=== PATIENT | female | born 1940 | race Caucasian/White ===

== ENCOUNTER 2016-04-18 17:49 | Emergency (ER) | payer MEDICARE, BC ==
[~2016-04-18] VITALS: Ht 157.5 cm; Wt 54.5 kg
[~2016-04-18 17:49] MED LIST: ACETAMINOPHEN325 MG PO; ALLEGRA60 MG PO; ALORA0.025 MG/2 TD; ANTIVERT 25MG25 MG PO; ASPI325T6 PO; ASPIRIN 32325 MG/TAB PO; ASPIRIN 81M81 MG/TA2 PO; AUGMENTIN 875 M1 TAB PO; BENADRYL25 M2 PO; BIRTH CONTROL; CALCIUM CITRAT200 MG PO; CECLOR 250MG250 MG PO; CEFACLOR250 MG PO; CEFTIN500 MG PO; CIPRO 500MG TA500 MG PO; EFFIENT10 MG PO; ESTRACE0.5 MG PO; FISH OIL500 MG PO; FLEXERIL 1010 MG/TAB PO; FLEXERIL5 MG PO; IRON325 M1 PO; LEVAQUIN 5500 MG/TAB PO; LINZESS290CAP PO; LIORESAL 1010 MG/TAB PO; LIPITOR 40MG TA40 MG PO; MACROBID 1100 MG/CAP PO; NEXIUM40 MG PO; NITROSTAT0.4 MG/TAB SL; NORCO 325 MG-51 TAB PO; OMNICEF 300MG300 MG PO; PEPCID 20MG TAB20 MG PO; PHENERGAN 25 TA25 MG; PHENERGAN 25 TA25 MG PO; PHENERGAN12.5 MG/SU RC; PHENERGAN25 MG RC; PLAVIX 75MG TAB75 MG PO; Patient's Own Medication PO; SINGULAIR10 MG PO; TOPROL XL 25MG25 MG PO; TOPROL XL 50MG50 MG PO; TYLENOL 500MG500 MG PO; ULTRAM ER100 MG PO; VALIUM 2MG T2 MG/TAB PO; VALIUM 5MG T5 MG/TAB PO; VIT C; VITAMIN B12100 MC1 PO; VITAMIN B1250 MCG PO; VITAMIN C500 MG PO; ZANTAC 7575 MG PO; ZESTRIL 5MG5 MG PO; ZITHROMAX 250M250 MG PO; ZOFRAN 4MG T4 MG/TAB PO; ZOFRAN ODT4 MG PO; ZOFRAN ODT8 MG PO; ZYRTEC PO; [UNRECOGNIZED DRUG - REMARK]
[2016-04-18 17:58] VITALS: TEMP 98.4
[2016-04-18 18:49] LABS: BASO % 0.4 % (0.0-2.0); EOS # 0.2 (0.0-0.7); EOS % 4.6 % (0-4.0); GRAN # 3.1 (1.4-6.5); GRAN % 61.2 % (42.2-75.2); HEMATOCRIT 37.5 % (37.0-47.0); HEMOGLOBIN 12.7 g/dl (12.5-16.0); LYMPH # 1.3 (1.2-3.4); MEAN CELL VOLUME 98 fl (80.0-100.0); MEAN CORPUSCULAR HEMOGLOBIN 33 pg (27.0-31.0); MEAN CORPUSCULAR HGB CONC 34 g/dl (33.0-37.0); MEAN PLATELET VOLUME 9.8 fl (7.4-10.4); MONO # 0.4 (0.1-0.6); MONO % 7.6 % (1.7-9.3); PLATELET COUNT 203 K/mm3 (130-400); RED BLOOD COUNT 3.84 M/mm3 (4.10-5.30); REDCELL DISTRIBUTION WIDTH-CV 11.9 % (11.5-14.5)
[2016-04-18 19:00] LABS: ADJUSTED CALCIUM 9.7 mg/dL (8.4-10.2); ALANINE AMINOTRANSFERASE 31 U/L (9-52); ALBUMIN 4.3 gm/dL (3.5-5.0); ALKALINE PHOSPHATASE 135 U/L (50-136); ANION GAP 10 mmol/L (7-16); BILIRUBIN,TOTAL 0.8 mg/dL (0.0-1.0); BLOOD UREA NITROGEN 15 mg/dL (7-17); C-REACTIVE PROTEIN 1.2 mg/dL (0.0-0.9); CALCIUM 9.9 mg/dL (8.4-10.2); CARBON DIOXIDE 24 mmol/L (22-30); CHLORIDE 102 mmol/L (98-107); CREATININE, serum 1.01 mg/dL (0.52-1.25); GLUCOSE 105 mg/dL (74-106); POTASSIUM 4.4 mmol/L (3.4-5.0); SODIUM 137 mmol/L (137-145); TOTAL PROTEIN 7.6 gm/dL (6.4-8.2)
[2016-04-18 19:10] LABS: TROPONIN-I < 0.012 ng/mL (0.000-0.034)
[2016-04-18] MEDS ORDERED: ZOFRAN 4MG T4 MG/TAB PO (20:32)
[2016-04-18] MEDS ORDERED: ATIVAN 0.50.5 MG/TAB PO (20:32)
[2016-04-18 21:20] VITALS: BP 136/72; PULSE 69
== END 2016-04-18 21:20 | disposition home or self-care (01) ==
LOC: COL.ER 17:49
PROVIDERS: Emergency Medicine
DX: R42 Dizziness and giddiness (principal); I10 Essential (primary) hypertension; I25.10 Atherosclerotic heart disease of native coronary artery without angina pectoris
CPT/HCPCS: J2060; J2405; J7030

== ENCOUNTER 2016-09-06 22:11 | Emergency (ER) | payer MEDICARE, BC ==
[~2016-09-06] VITALS: Ht 157.5 cm; Wt 53.6 kg
[~2016-09-06 22:11] MED LIST changes: +ATIVAN 0.50.5 MG/TAB PO
[2016-09-06 22:24] VITALS: TEMP 98
[2016-09-06] MEDS ORDERED: VITAMIN D 1001000 IU PO (22:27)
[2016-09-06 23:13] LABS: BASO % 0.5 % (0.0-2.0); EOS # 0.3 (0.0-0.7); EOS % 4.6 % (0-4.0); GRAN # 3.1 (1.4-6.5); GRAN % 55.1 % (42.2-75.2); HEMATOCRIT 36.6 % (37.0-47.0); HEMOGLOBIN 12.4 g/dl (12.5-16.0); LYMPH # 1.7 (1.2-3.4); LYMPH % 30.1 % (20.0-51.0); MEAN CELL VOLUME 97 fl (80.0-100.0); MEAN CORPUSCULAR HEMOGLOBIN 33 pg (27.0-31.0); MEAN CORPUSCULAR HGB CONC 34 g/dl (33.0-37.0); MEAN PLATELET VOLUME 10.2 fl (7.4-10.4); MONO # 0.5 (0.1-0.6); MONO % 8.8 % (1.7-9.3); PLATELET COUNT 174 K/mm3 (130-400); RED BLOOD COUNT 3.76 M/mm3 (4.10-5.30); REDCELL DISTRIBUTION WIDTH-CV 11.8 % (11.5-14.5); WHITE BLOOD COUNT 5.7 K/mm3 (4.8-10.8)
[2016-09-06 23:18] LABS: ALANINE AMINOTRANSFERASE 23 U/L (9-52); ALBUMIN 4.1 gm/dL (3.5-5.0); ALKALINE PHOSPHATASE 101 U/L (50-136); ANION GAP 10 mmol/L (7-16); BLOOD UREA NITROGEN 16 mg/dL (7-17); CALCIUM 9.1 mg/dL (8.4-10.2); CARBON DIOXIDE 24 mmol/L (22-30); CHLORIDE 103 mmol/L (98-107); CREATININE, serum 0.91 mg/dL (0.52-1.25); GLUCOSE 86 mg/dL (74-106); POTASSIUM 4.1 mmol/L (3.4-5.0); SODIUM 137 mmol/L (137-145); TOTAL PROTEIN 6.9 gm/dL (6.4-8.2)
[2016-09-06 23:31] LABS: PH 6 (5-8); SQUAMOUS EPITHELIAL 0-2 /hpf; URINE APPEARANCE Clear; URINE BACTERIA None Seen /hpf; URINE BILIRUBIN Negative (NEGATIVE); URINE BLOOD Negative (NEGATIVE); URINE COLOR Straw; URINE GLUCOSE Negative (NEGATIVE); URINE KETONE Negative (NEGATIVE); URINE RBC 0-2 /hpf; URINE UROBILINOGEN Negative (NEGATIVE); URINE WBC 0-2 /hpf
[2016-09-06] MEDS ORDERED: DYNACIRC PO (23:43)
[2016-09-06] MEDS ORDERED: ZOFRAN 4MG T4 MG/TAB PO (23:43)
[2016-09-06 23:52] LABS: TROPONIN-I < 0.012 ng/mL (0.000-0.034)
[2016-09-07 00:35] VITALS: BP 135/73; PULSE 62
== END 2016-09-07 00:35 | disposition home or self-care (01) ==
LOC: COL.ER 22:11
PROVIDERS: Emergency Medicine
DX: I10 Essential (primary) hypertension (principal); R11.0 Nausea; R10.13 Epigastric pain; R51 Headache; R07.9 Chest pain, unspecified; I25.10 Atherosclerotic heart disease of native coronary artery without angina pectoris; Z95.5 Presence of coronary angioplasty implant and graft; Z79.02 Long term (current) use of antithrombotics/antiplatelets

== ENCOUNTER 2016-11-26 19:02 | Emergency (ER) | payer MEDICARE, BC ==
[~2016-11-26] VITALS: Ht 157.5 cm; Wt 52.7 kg
[~2016-11-26 19:02] MED LIST changes: +DYNACIRC PO; +VITAMIN D 1001000 IU PO
[2016-11-26 19:07] VITALS: TEMP 98
[2016-11-26] MEDS ORDERED: CEFACLOR250 MG PO (19:29)
[2016-11-26 19:50] LABS: BASO % 0.3 % (0.0-2.0); EOS # 0.2 (0.0-0.7); EOS % 4.2 % (0-4.0); GRAN # 3.5 (1.4-6.5); GRAN % 60.7 % (42.2-75.2); HEMOGLOBIN 12.3 g/dl (12.5-16.0); LYMPH # 1.5 (1.2-3.4); LYMPH % 26.8 % (20.0-51.0); MEAN CELL VOLUME 96 fl (80.0-100.0); MEAN CORPUSCULAR HEMOGLOBIN 32 pg (27.0-31.0); MEAN CORPUSCULAR HGB CONC 34 g/dl (33.0-37.0); MEAN PLATELET VOLUME 10.3 fl (7.4-10.4); MONO # 0.5 (0.1-0.6); MONO % 7.8 % (1.7-9.3); PLATELET COUNT 192 K/mm3 (130-400); RED BLOOD COUNT 3.81 M/mm3 (4.10-5.30); WHITE BLOOD COUNT 5.7 K/mm3 (4.8-10.8)
[2016-11-26 19:53] LABS: HEMATOCRIT 36.6 % (37.0-47.0)
[2016-11-26 20:10] LABS: ADJUSTED CALCIUM 8.7 mg/dL (8.4-10.2); ALANINE AMINOTRANSFERASE 24 U/L (9-52); ALBUMIN 4.5 gm/dL (3.5-5.0); ALKALINE PHOSPHATASE 113 U/L (50-136); ANION GAP 11 mmol/L (7-16); BLOOD UREA NITROGEN 14 mg/dL (7-17); C-REACTIVE PROTEIN 0.7 mg/dL (0.0-0.9); CALCIUM 9.1 mg/dL (8.4-10.2); CARBON DIOXIDE 21 mmol/L (22-30); CHLORIDE 99 mmol/L (98-107); CREATININE, serum 0.87 mg/dL (0.52-1.25); GLUCOSE 107 mg/dL (74-106); SODIUM 131 mmol/L (137-145); TOTAL PROTEIN 7.6 gm/dL (6.4-8.2)
[2016-11-26 20:21] LABS: TROPONIN-I < 0.012 ng/mL (0.000-0.034)
[2016-11-26] MEDS ORDERED: NORCO 325 MG-51 TAB PO (20:56)
[2016-11-26] MEDS ORDERED: ZOFRAN 4MG T4 MG/TAB PO (20:56)
[2016-11-26] MEDS ORDERED: MEDROL 4MG DOSPA4 MG PO (21:06)
[2016-11-26 22:43] VITALS: BP 156/74; PULSE 81
== END 2016-11-26 23:05 | disposition home or self-care (01) ==
LOC: COL.ER 19:02
PROVIDERS: Emergency Medicine
DX: M54.12 Radiculopathy, cervical region (principal); I10 Essential (primary) hypertension; I25.10 Atherosclerotic heart disease of native coronary artery without angina pectoris; I25.2 Old myocardial infarction; Z87.39 Personal history of other diseases of the musculoskeletal system and connective tissue; Z95.5 Presence of coronary angioplasty implant and graft
CPT/HCPCS: J1170; J2060; J2405; J7512

== ENCOUNTER → 2016-11-27 | Emergency (ER) | payer MEDICARE, BC ==
[~2016-11-27] MED LIST changes: +MEDROL 4MG DOSPA4 MG PO; +MERIBIN5 MG PO; +TRIMPEX100 MG PO
[2016-11-27 19:52] VITALS: BP 186/88; PULSE 78; TEMP 97.9
[2016-11-27 21:38] LABS: BASO % 0.3 % (0.0-2.0); EOS % 0.1 % (0-4.0); GRAN # 6.9 (1.4-6.5); GRAN % 86.5 % (42.2-75.2); HEMATOCRIT 38.9 % (37.0-47.0); HEMOGLOBIN 13.2 g/dl (12.5-16.0); LYMPH # 0.6 (1.2-3.4); LYMPH % 7.8 % (20.0-51.0); MEAN CELL VOLUME 97 fl (80.0-100.0); MEAN CORPUSCULAR HEMOGLOBIN 33 pg (27.0-31.0); MEAN CORPUSCULAR HGB CONC 34 g/dl (33.0-37.0); MEAN PLATELET VOLUME 10.2 fl (7.4-10.4); MONO # 0.4 (0.1-0.6); PLATELET COUNT 185 K/mm3 (130-400); RED BLOOD COUNT 4.02 M/mm3 (4.10-5.30); REDCELL DISTRIBUTION WIDTH-CV 11.9 % (11.5-14.5)
[2016-11-27 21:53] LABS: ALANINE AMINOTRANSFERASE 24 U/L (9-52); ALBUMIN 4.2 gm/dL (3.5-5.0); ALKALINE PHOSPHATASE 110 U/L (50-136); ANION GAP 8 mmol/L (7-16); BILIRUBIN,TOTAL 1.7 mg/dL (0.0-1.0); BLOOD UREA NITROGEN 13 mg/dL (7-17); C-REACTIVE PROTEIN 0.6 mg/dL (0.0-0.9); CALCIUM 9.2 mg/dL (8.4-10.2); CARBON DIOXIDE 25 mmol/L (22-30); CHLORIDE 102 mmol/L (98-107); CREATININE, serum 0.92 mg/dL (0.52-1.25); GLUCOSE 138 mg/dL (74-106); POTASSIUM 4.5 mmol/L (3.4-5.0); SODIUM 135 mmol/L (137-145); TOTAL PROTEIN 7.3 gm/dL (6.4-8.2)
[2016-11-27 22:07] LABS: TROPONIN-I < 0.012 ng/mL (0.000-0.034)
== END ==
LOC: COL.ER 19:50
PROVIDERS: Emergency Medicine
DX: R11.2 Nausea with vomiting, unspecified (principal); M54.12 Radiculopathy, cervical region; M54.6 Pain in thoracic spine; T50.995A Adverse effect of other drugs, medicaments and biological substances, initial encounter; I25.10 Atherosclerotic heart disease of native coronary artery without angina pectoris; I10 Essential (primary) hypertension; Z95.5 Presence of coronary angioplasty implant and graft; Z79.82 Long term (current) use of aspirin
CPT/HCPCS: J1630; J2405; J7030

== ENCOUNTER 2016-12-04 11:04 | Emergency (ER) | payer MEDICARE, BC ==
[~2016-12-04] VITALS: Ht 157.5 cm; Wt 51.8 kg
[~2016-12-04 11:04] MED LIST changes: -MERIBIN5 MG PO; -TRIMPEX100 MG PO
[2016-12-04 11:07] VITALS: TEMP 96.8
[2016-12-04] MEDS ORDERED: TRIMPEX100 MG PO (11:29)
[2016-12-04 12:17] LABS: PH 7 (5-8); URINE APPEARANCE Hazy; URINE BACTERIA Rare /hpf; URINE BILIRUBIN Negative (NEGATIVE); URINE BLOOD 1+ (NEGATIVE); URINE COLOR Yellow; URINE GLUCOSE Negative (NEGATIVE); URINE KETONE Negative (NEGATIVE); URINE RBC 0-2 /hpf; URINE UROBILINOGEN Negative (NEGATIVE)
[2016-12-04 12:25] LABS: URINE WBC 20-50 /hpf
[2016-12-04 12:40] LABS: BASO % 0.2 % (0.0-2.0); EOS % 0.2 % (0-4.0); GRAN # 7.2 (1.4-6.5); GRAN % 82.8 % (42.2-75.2); HEMATOCRIT 41.1 % (37.0-47.0); HEMOGLOBIN 13.8 g/dl (12.5-16.0); LYMPH % 11.1 % (20.0-51.0); MEAN CELL VOLUME 97 fl (80.0-100.0); MEAN CORPUSCULAR HEMOGLOBIN 33 pg (27.0-31.0); MEAN CORPUSCULAR HGB CONC 34 g/dl (33.0-37.0); MEAN PLATELET VOLUME 10.1 fl (7.4-10.4); MONO # 0.5 (0.1-0.6); MONO % 5.2 % (1.7-9.3); PLATELET COUNT 224 K/mm3 (130-400); RED BLOOD COUNT 4.23 M/mm3 (4.10-5.30); REDCELL DISTRIBUTION WIDTH-CV 11.9 % (11.5-14.5); WHITE BLOOD COUNT 8.7 K/mm3 (4.8-10.8)
[2016-12-04 12:54] LABS: CALCIUM 9.9 mg/dL (8.4-10.2); CREATININE, serum 1.06 mg/dL (0.52-1.25); POTASSIUM 5.4 mmol/L (3.4-5.0)
[2016-12-04] MEDS ORDERED: CIPRO 500MG TA500 MG PO (13:43)
[2016-12-04 14:11] VITALS: BP 162/68; PULSE 62
== END 2016-12-04 14:12 | disposition home or self-care (01) ==
LOC: COL.ER 11:04
PROVIDERS: Emergency Medicine
DX: N39.0 Urinary tract infection, site not specified (principal); T38.0X5A Adverse effect of glucocorticoids and synthetic analogues, initial encounter; Z90.49 Acquired absence of other specified parts of digestive tract; Z90.710 Acquired absence of both cervix and uterus; Z79.82 Long term (current) use of aspirin
CPT/HCPCS: J0696; J2765

== ENCOUNTER 2016-12-04 21:23 | Observation (INO) | payer MEDICARE, BC ==
[~2016-12-04] VITALS: Ht 157.5 cm; Wt 47.3 kg
[~2016-12-04 21:23] MED LIST changes: +TRIMPEX100 MG PO
[2016-12-04 22:12] LABS: BASO % 0.2 % (0.0-2.0); EOS # 0.1 (0.0-0.7); EOS % 0.6 % (0-4.0); GRAN # 7.3 (1.4-6.5); GRAN % 79.2 % (42.2-75.2); HEMATOCRIT 42.8 % (37.0-47.0); HEMOGLOBIN 14.7 g/dl (12.5-16.0); LYMPH # 1.2 (1.2-3.4); LYMPH % 12.5 % (20.0-51.0); MEAN CELL VOLUME 97 fl (80.0-100.0); MEAN CORPUSCULAR HEMOGLOBIN 33 pg (27.0-31.0); MEAN CORPUSCULAR HGB CONC 34 g/dl (33.0-37.0); MEAN PLATELET VOLUME 10.1 fl (7.4-10.4); MONO # 0.7 (0.1-0.6); MONO % 7.1 % (1.7-9.3); PLATELET COUNT 239 K/mm3 (130-400); RED BLOOD COUNT 4.43 M/mm3 (4.10-5.30); REDCELL DISTRIBUTION WIDTH-CV 11.8 % (11.5-14.5); WHITE BLOOD COUNT 9.3 K/mm3 (4.8-10.8)
[2016-12-04 22:27] LABS: C-REACTIVE PROTEIN 1.4 mg/dL (0.0-0.9)
[2016-12-04 23:59] LABS: ADJUSTED CALCIUM 9.9 mg/dL (8.4-10.2); ALANINE AMINOTRANSFERASE 28 U/L (9-52); ALBUMIN 4.9 gm/dL (3.5-5.0); ALKALINE PHOSPHATASE 130 U/L (50-136); ANION GAP 14 mmol/L (7-16); BILIRUBIN,TOTAL 1.6 mg/dL (0.0-1.0); BLOOD UREA NITROGEN 16 mg/dL (7-17); CALCIUM 10.6 mg/dL (8.4-10.2); CARBON DIOXIDE 24 mmol/L (22-30); CHLORIDE 95 mmol/L (98-107); CREATININE, serum 1.14 mg/dL (0.52-1.25); GLUCOSE 154 mg/dL (74-106); LIPASE 33 U/L (23-300); POTASSIUM 4.5 mmol/L (3.4-5.0); SODIUM 133 mmol/L (137-145); TOTAL PROTEIN 8.8 gm/dL (6.4-8.2)
[2016-12-05 00:11] LABS: TROPONIN-I < 0.012 ng/mL (0.000-0.034)
[2016-12-05 01:48] VITALS: BP 148/53; PULSE 69; TEMP 97.7
[2016-12-05 04:32] VITALS: BP 149/66; PULSE 78; TEMP 98.1
[2016-12-05 08:15] VITALS: BP 151/55; PULSE 67; TEMP 97.8
[2016-12-05 08:29] LABS: BASO % 0.3 % (0.0-2.0); EOS % 0.3 % (0-4.0); GRAN # 5.7 (1.4-6.5); GRAN % 73.6 % (42.2-75.2); HEMATOCRIT 44.8 % (37.0-47.0); HEMOGLOBIN 15.3 g/dl (12.5-16.0); LYMPH # 1.3 (1.2-3.4); LYMPH % 16.9 % (20.0-51.0); MEAN CELL VOLUME 96 fl (80.0-100.0); MEAN CORPUSCULAR HEMOGLOBIN 33 pg (27.0-31.0); MEAN CORPUSCULAR HGB CONC 34 g/dl (33.0-37.0); MEAN PLATELET VOLUME 10.7 fl (7.4-10.4); MONO # 0.6 (0.1-0.6); MONO % 8.2 % (1.7-9.3); RED BLOOD COUNT 4.65 M/mm3 (4.10-5.30); WHITE BLOOD COUNT 7.7 K/mm3 (4.8-10.8)
[2016-12-05 08:31] LABS: PLATELET COUNT 121 K/mm3 (130-400)
[2016-12-05 09:02] LABS: CALCIUM 8.7 mg/dL (8.4-10.2); CREATININE, serum 0.9 mg/dL (0.52-1.25); POTASSIUM 4.6 mmol/L (3.4-5.0)
[2016-12-05 11:05] VITALS: BP 147/64; PULSE 74; TEMP 98
[2016-12-05 15:19] VITALS: BP 161/72; PULSE 65; TEMP 97.9
[2016-12-05 18:43] VITALS: BP 154/76; PULSE 82; TEMP 97.4
[2016-12-06] VITALS (12 sets, daily range): BP systolic 121–182; BP diastolic 54–77; PULSE 49–75; TEMP 97.2–98.3
[2016-12-06 05:05] LABS: BASO % 0.4 % (0.0-2.0); EOS # 0.1 (0.0-0.7); EOS % 1.3 % (0-4.0); GRAN # 3.5 (1.4-6.5); GRAN % 62.9 % (42.2-75.2); LYMPH # 1.4 (1.2-3.4); LYMPH % 25.9 % (20.0-51.0); MEAN CELL VOLUME 99 fl (80.0-100.0); MEAN CORPUSCULAR HGB CONC 33 g/dl (33.0-37.0); MONO # 0.5 (0.1-0.6); MONO % 8.8 % (1.7-9.3); PLATELET COUNT 174 K/mm3 (130-400); WHITE BLOOD COUNT 5.6 K/mm3 (4.8-10.8)
[2016-12-06 05:12] LABS: HEMATOCRIT 31.8 % (37.0-47.0); HEMOGLOBIN 10.5 g/dl (12.5-16.0); MEAN CORPUSCULAR HEMOGLOBIN 33 pg (27.0-31.0)
[2016-12-06 05:16] LABS: CALCIUM 8.1 mg/dL (8.4-10.2); CREATININE, serum 0.94 mg/dL (0.52-1.25); POTASSIUM 3.6 mmol/L (3.4-5.0)
[2016-12-06 09:45] LABS: HEMATOCRIT 35.6 % (37.0-47.0); HEMOGLOBIN 11.8 g/dl (12.5-16.0)
[2016-12-06] MEDS ORDERED: CEFTIN500 MG PO (10:38)
[2016-12-07 03:22] VITALS: BP 148/51; PULSE 15; TEMP 98.6
[2016-12-07 06:34] LABS: BASO % 0.8 % (0.0-2.0); EOS # 0.1 (0.0-0.7); EOS % 2.3 % (0-4.0); GRAN # 3.2 (1.4-6.5); GRAN % 61.4 % (42.2-75.2); LYMPH # 1.3 (1.2-3.4); LYMPH % 24.3 % (20.0-51.0); MEAN CELL VOLUME 95 fl (80.0-100.0); MEAN CORPUSCULAR HGB CONC 34 g/dl (33.0-37.0); MEAN PLATELET VOLUME 10.2 fl (7.4-10.4); MONO # 0.5 (0.1-0.6); MONO % 10.4 % (1.7-9.3); PLATELET COUNT 165 K/mm3 (130-400); RED BLOOD COUNT 3.46 M/mm3 (4.10-5.30); REDCELL DISTRIBUTION WIDTH-CV 11.8 % (11.5-14.5); WHITE BLOOD COUNT 5.2 K/mm3 (4.8-10.8)
[2016-12-07 06:35] LABS: HEMOGLOBIN 11.3 g/dl (12.5-16.0); MEAN CORPUSCULAR HEMOGLOBIN 33 pg (27.0-31.0)
[2016-12-07 06:47] LABS: CALCIUM 8.1 mg/dL (8.4-10.2); CREATININE, serum 0.83 mg/dL (0.52-1.25); POTASSIUM 3.4 mmol/L (3.4-5.0)
[2016-12-07 08:06] VITALS: BP 166/66; PULSE 58; TEMP 98
[2016-12-07 12:23] VITALS: BP 167/67; PULSE 65; TEMP 97.9
== END 2016-12-07 16:38 | disposition home or self-care (01) ==
LOC: COL.ER 21:23 → MEDICAL 12-05 00:48 → EDBEDREQTM 12-05 00:57 → MEDICAL 12-07 16:38
PROVIDERS: Family Medicine; Internal Medicine; Nurse Practitioner Family; Physician Assistant
DX: K22.2 Esophageal obstruction (principal); I25.10 Atherosclerotic heart disease of native coronary artery without angina pectoris; I10 Essential (primary) hypertension; E78.5 Hyperlipidemia, unspecified; I82.409 Acute embolism and thrombosis of unspecified deep veins of unspecified lower extremity; E44.0 Moderate protein-calorie malnutrition; Z90.710 Acquired absence of both cervix and uterus; Z90.49 Acquired absence of other specified parts of digestive tract; Z95.5 Presence of coronary angioplasty implant and graft; Z82.5 Family history of asthma and other chronic lower respiratory diseases; Z82.49 Family history of ischemic heart disease and other diseases of the circulatory system; Z83.3 Family history of diabetes mellitus
CPT/HCPCS: C1726; G0378; J0595; J0696; J1650; J2060; J2405; J2704; J2765; J7030; Q9967

== ENCOUNTER 2016-12-18 21:09 | Emergency (ER) | payer MEDICARE, BC ==
[~2016-12-18] VITALS: Ht 157.5 cm; Wt 51.8 kg
[2016-12-18 21:45] VITALS: TEMP 98.1
[2016-12-18 22:55] LABS: BASO % 0.5 % (0.0-2.0); EOS # 0.2 (0.0-0.7); EOS % 3.3 % (0-4.0); GRAN # 4.4 (1.4-6.5); GRAN % 66.6 % (42.2-75.2); HEMATOCRIT 38.8 % (37.0-47.0); HEMOGLOBIN 13.5 g/dl (12.5-16.0); LYMPH # 1.3 (1.2-3.4); LYMPH % 20.1 % (20.0-51.0); MEAN CELL VOLUME 95 fl (80.0-100.0); MEAN CORPUSCULAR HEMOGLOBIN 33 pg (27.0-31.0); MEAN CORPUSCULAR HGB CONC 35 g/dl (33.0-37.0); MEAN PLATELET VOLUME 9.6 fl (7.4-10.4); MONO # 0.6 (0.1-0.6); MONO % 8.7 % (1.7-9.3); PLATELET COUNT 253 K/mm3 (130-400); RED BLOOD COUNT 4.07 M/mm3 (4.10-5.30); REDCELL DISTRIBUTION WIDTH-CV 12.2 % (11.5-14.5); WHITE BLOOD COUNT 6.6 K/mm3 (4.8-10.8)
[2016-12-18 23:04] LABS: ADJUSTED CALCIUM 9.5 mg/dL (8.4-10.2); ALBUMIN 4.2 gm/dL (3.5-5.0); BILIRUBIN,TOTAL 1.2 mg/dL (0.0-1.0); C-REACTIVE PROTEIN 0.9 mg/dL (0.0-0.9); CALCIUM 9.7 mg/dL (8.4-10.2); CREATININE, serum 0.92 mg/dL (0.52-1.25); POTASSIUM 4.3 mmol/L (3.4-5.0); TOTAL PROTEIN 7.1 gm/dL (6.4-8.2)
[2016-12-18 23:23] LABS: PH 6 (5-8); SQUAMOUS EPITHELIAL 0-2 /hpf; URINE APPEARANCE Clear; URINE BACTERIA None Seen /hpf; URINE BILIRUBIN Negative (NEGATIVE); URINE BLOOD Negative (NEGATIVE); URINE COLOR Yellow; URINE GLUCOSE Negative (NEGATIVE); URINE KETONE Negative (NEGATIVE); URINE RBC 0-2 /hpf; URINE UROBILINOGEN Negative (NEGATIVE); URINE WBC 0-2 /hpf
[2016-12-19] MEDS ORDERED: MERIBIN5 MG PO (00:04)
[2016-12-19] MEDS ORDERED: ZOFRAN ODT4 MG PO (00:06)
[2016-12-19] MEDS ORDERED: ATIVAN 0.50.5 MG/TAB PO (00:07)
[2016-12-19 00:20] VITALS: BP 171/85; PULSE 63
== END 2016-12-19 00:20 | disposition home or self-care (01) ==
LOC: COL.ER 21:09
PROVIDERS: Family Medicine
DX: E86.9 Volume depletion, unspecified (principal); R11.2 Nausea with vomiting, unspecified; I10 Essential (primary) hypertension; I25.10 Atherosclerotic heart disease of native coronary artery without angina pectoris; Z79.82 Long term (current) use of aspirin
CPT/HCPCS: J2405; J2765; J7030

== ENCOUNTER → 2017-02-08 | Outpatient (REF) ==
[~2017-02-08] MED LIST changes: +DULCOLAX S10 MG/SUPP RC; +FERROUS SU325 MG/TAB PO; +GOOD NEIGH1200 MG/15 PO; +MERIBIN5 MG PO; +MULTIPLE VITAMI1 TA5 PO; +OYSCO 500500 M1 PO; +PRIL40; +PROTONIX 40MG T40 MG PO; +SENOKOT S 50 MG1 TAB PO; +SORE THROAT LOZ1 LO1 MM; +TYLENOL 325MG325 MG PO; +ULTRAM 50MG TAB50 MG PO; +VITAMINC500CH PO
[2017-02-08 15:39] LABS: ADD PATHOLOGY DIFF REVIEW NO; HEMATOCRIT 26.8 % (37.0-47.0); HEMOGLOBIN 8.7 g/dl (12.5-16.0); MEAN CELL VOLUME 102 fl (80.0-100.0); MEAN CORPUSCULAR HEMOGLOBIN 33 pg (27.0-31.0); MEAN CORPUSCULAR HGB CONC 33 g/dl (33.0-37.0); MEAN PLATELET VOLUME 9.2 fl (7.4-10.4); PLATELET COUNT 341 K/mm3 (130-400); RED BLOOD COUNT 2.63 M/mm3 (4.10-5.30); WHITE BLOOD COUNT 6.2 K/mm3 (4.8-10.8)
[2017-02-08 15:41] LABS: BASO % 0.3 % (0.0-2.0); EOS # 0.3 (0.0-0.7); EOS % 5.2 % (0-4.0); GRAN # 3.7 (1.4-6.5); GRAN % 60.1 % (42.2-75.2); LYMPH # 1.2 (1.2-3.4); LYMPH % 19.6 % (20.0-51.0); MONO # 0.7 (0.1-0.6); MONO % 11.4 % (1.7-9.3)
[2017-02-08 16:04] LABS: ADJUSTED CALCIUM 9.7 mg/dL (8.4-10.2); CALCIUM 8.9 mg/dL (8.4-10.2); CREATININE, serum 0.83 mg/dL (0.52-1.25); POTASSIUM 4.1 mmol/L (3.4-5.0); TOTAL PROTEIN 5.2 gm/dL (6.4-8.2)
[2017-02-08 16:25] LABS: BAND 20 % (0-10); EOSINOPHIL 2 % (0-4); LYMPHOCYTE 27 % (20.0-51.0); NEUTROPHILS 46 % (42.0-75.2); PLATELET ESTIMATE NORMAL (NORMAL); TOTAL CELLS COUNTED 100
== END ==
LOC: ZCOL.LAB 15:25
PROVIDERS: Family Medicine
DX: D67 Hereditary factor IX deficiency (principal); N18.3 Chronic kidney disease, stage 3 (moderate); R44.3 Hallucinations, unspecified

== ENCOUNTER → 2017-02-17 | Outpatient (REF) ==
[2017-02-17 11:50] LABS: BASO % 0.5 % (0.0-2.0); EOS # 0.3 (0.0-0.7); EOS % 4.2 % (0-4.0); GRAN # 5.3 (1.4-6.5); GRAN % 67.6 % (42.2-75.2); LYMPH # 1.4 (1.2-3.4); LYMPH % 17.6 % (20.0-51.0); MEAN CELL VOLUME 105 fl (80.0-100.0); MEAN CORPUSCULAR HGB CONC 32 g/dl (33.0-37.0); MEAN PLATELET VOLUME 9.2 fl (7.4-10.4); MONO # 0.7 (0.1-0.6); MONO % 8.7 % (1.7-9.3); PLATELET COUNT 365 K/mm3 (130-400); RED BLOOD COUNT 3.38 M/mm3 (4.10-5.30); WHITE BLOOD COUNT 7.9 K/mm3 (4.8-10.8)
[2017-02-17 11:52] LABS: HEMATOCRIT 35.6 % (37.0-47.0); HEMOGLOBIN 11.2 g/dl (12.5-16.0); MEAN CORPUSCULAR HEMOGLOBIN 33 pg (27.0-31.0)
== END ==
LOC: ZCOL.LAB 11:41
PROVIDERS: Family Medicine
DX: D62 Acute posthemorrhagic anemia (principal)

== ENCOUNTER → 2017-04-07 | Outpatient (CLI) | payer MEDICARE, BC | LOC: MC.RAD 09:34 | DX: Z12.31 Encounter for screening mammogram for malignant neoplasm of breast (principal) ==

== ENCOUNTER → 2017-04-18 | Outpatient (CLI) | payer MEDICARE, BC | LOC: COL.RAD 09:26 | DX: M50.33 Other cervical disc degeneration, cervicothoracic region (principal); M89.8X8 Other specified disorders of bone, other site ==

== ENCOUNTER → 2017-08-21 | Outpatient (CLI) | payer OTHER, MEDICARE, BC ==
[2017-08-21 10:54] LABS: HEMATOCRIT 39.3 % (37.0-47.0); HEMOGLOBIN 13.3 g/dl (12.5-16.0); MEAN CELL VOLUME 97 fl (80.0-100.0); MEAN CORPUSCULAR HEMOGLOBIN 33 pg (27.0-31.0); MEAN CORPUSCULAR HGB CONC 34 g/dl (33.0-37.0); MEAN PLATELET VOLUME 10.2 fl (7.4-10.4); PLATELET COUNT 187 K/mm3 (130-400); RED BLOOD COUNT 4.04 M/mm3 (4.10-5.30); REDCELL DISTRIBUTION WIDTH-CV 11.6 % (11.5-14.5)
[2017-08-21 11:36] LABS: ERYTHROCYTE SEDIMENTATION RATE 10 mm/hr (0-30)
== END ==
LOC: COL.LAB 09:49
PROVIDERS: Orthopaedic Surgery
DX: R10.30 Lower abdominal pain, unspecified (principal); Z98.890 Other specified postprocedural states

== ENCOUNTER 2017-09-16 15:29 | Emergency (ER) | payer MEDICARE, BC ==
[~2017-09-16] VITALS: Ht 157.5 cm; Wt 50.0 kg
[2017-09-16 15:34] VITALS: TEMP 98.2
[2017-09-16 17:12] LABS: BASO % 0.4 % (0.0-2.0); EOS % 0.1 % (0-4.0); GRAN # 6.1 (1.4-6.5); GRAN % 78.9 % (42.2-75.2); HEMATOCRIT 42.8 % (37.0-47.0); HEMOGLOBIN 14.9 g/dl (12.5-16.0); LYMPH # 1.2 (1.2-3.4); LYMPH % 14.8 % (20.0-51.0); MEAN CELL VOLUME 94 fl (80.0-100.0); MEAN CORPUSCULAR HEMOGLOBIN 33 pg (27.0-31.0); MEAN CORPUSCULAR HGB CONC 35 g/dl (33.0-37.0); MEAN PLATELET VOLUME 10.4 fl (7.4-10.4); MONO # 0.4 (0.1-0.6); MONO % 5.3 % (1.7-9.3); PLATELET COUNT 198 K/mm3 (130-400); RED BLOOD COUNT 4.55 M/mm3 (4.10-5.30); REDCELL DISTRIBUTION WIDTH-CV 11.4 % (11.5-14.5)
[2017-09-16 17:28] LABS: ALBUMIN 4.4 gm/dL (3.5-5.0); C-REACTIVE PROTEIN 0.8 mg/dL (0.0-0.9); CALCIUM 9.7 mg/dL (8.4-10.2); CREATININE, serum 1.06 mg/dL (0.52-1.25); POTASSIUM 4.3 mmol/L (3.4-5.0); TOTAL PROTEIN 8.3 gm/dL (6.4-8.2)
[2017-09-16 18:27] LABS: COLLECTION METHOD CLEAN CATCH
[2017-09-16 18:33] LABS: MUCOUS Present /lpf; PH 5 (5-8); SQUAMOUS EPITHELIAL 0-2 /hpf; URINE APPEARANCE Hazy; URINE BACTERIA Moderate /hpf; URINE BILIRUBIN Negative (NEGATIVE); URINE BLOOD Negative (NEGATIVE); URINE COLOR Yellow; URINE GLUCOSE Negative (NEGATIVE); URINE KETONE 1+ (NEGATIVE); URINE LEUKOCYTE ESTERASE Negative (NEGATIVE); URINE NITRATE Positive (NEGATIVE); URINE PROTEIN(semi-quant) Negative (NEGATIVE); URINE RBC 0-2 /hpf; URINE UROBILINOGEN >=4.0 mg/dL (NEGATIVE)
[2017-09-16] MEDS ORDERED: ZOFRAN 4MG T4 MG/TAB PO ×2 (20:24)
[2017-09-16] MEDS ORDERED: REGLAN 10MG10 MG/TAB PO (20:35)
[2017-09-16 20:41] VITALS: BP 145/80; PULSE 65
== END 2017-09-16 20:43 | disposition home or self-care (01) ==
LOC: COL.ER 15:29
PROVIDERS: Emergency Medicine
DX: R11.10 Vomiting, unspecified (principal); Z90.49 Acquired absence of other specified parts of digestive tract; Z90.89 Acquired absence of other organs; Z90.710 Acquired absence of both cervix and uterus; Z79.82 Long term (current) use of aspirin
CPT/HCPCS: J2405; J2765; J7030; Q9967

== ENCOUNTER → 2017-10-16 | Outpatient (CLI) | payer MEDICARE, BC ==
[~2017-10-16] MED LIST changes: +REGLAN 10MG10 MG/TAB PO
== END ==
LOC: COL.RAD 07:56
DX: M43.13 Spondylolisthesis, cervicothoracic region (principal)

== ENCOUNTER → 2018-04-21 | Outpatient (CLI) | payer MEDICARE, BC ==
[~2018-04-21] MED LIST changes: +PRINCIPEN500 MG PO
== END ==
LOC: MC.RAD 08:04
DX: Z12.31 Encounter for screening mammogram for malignant neoplasm of breast (principal)

== ENCOUNTER 2018-04-30 08:45 | Outpatient (RCR) | payer MEDICARE, BC | END 2018-06-01 | disposition home or self-care (01) | LOC: WSC | DX: R10.31 Right lower quadrant pain (principal); Z98.890 Other specified postprocedural states; Z96.641 Presence of right artificial hip joint | CPT/HCPCS: G8978-GP; G8979-GP ==

== ENCOUNTER 2018-07-09 07:43 | Outpatient (CLI) | payer MEDICARE, BC ==
[~2018-07-09] VITALS: Ht 157.6 cm; Wt 55.4 kg
[~2018-07-09 07:43] MED LIST changes: +ASPIRIN E.C. 8181 MG PO
[2018-07-09] MEDS ORDERED: NORVASC2.5 MG PO (08:25)
[2018-07-09] MEDS ORDERED: AMOXICILLIN 25250 MG PO (08:27)
[2018-07-09] MEDS ORDERED: TOPROL XL 25MG25 MG PO (08:28)
[2018-07-09] MEDS ORDERED: TOPROL XL 50MG50 MG PO (08:28)
[2018-07-09] MEDS ORDERED: NITROSTAT0.4 MG/TAB SL (08:29)
[2018-07-09 08:57] VITALS: BP 136/61; PULSE 54; TEMP 97
[2018-07-09] MEDS ORDERED: CEPHALEXIN500 M1 PO (09:22)
[2018-07-09] MEDS ORDERED: ZOFRAN 4MG T4 MG/TAB PO (09:23)
[2018-07-09 09:40] VITALS: BP 144/66; PULSE 54
--- NOTE | 2018-07-09 09:41 | NUR ---
Dressing observed clean,dry,and intact.
--- NOTE | 2018-07-09 10:01 | NUR ---
Discharge instructions given to pt.Pt verbalizes understanding.Pt escortedout by this nurse.
== END 2018-07-09 10:01 | disposition home or self-care (01) ==
LOC: COL.CAR 07:43
DX: I47.1 Supraventricular tachycardia (principal); I25.10 Atherosclerotic heart disease of native coronary artery without angina pectoris; Z98.61 Coronary angioplasty status; D51.0 Vitamin B12 deficiency anemia due to intrinsic factor deficiency; R60.0 Localized edema; K21.9 Gastro-esophageal reflux disease without esophagitis; Z80.0 Family history of malignant neoplasm of digestive organs; Z85.828 Personal history of other malignant neoplasm of skin; Z90.49 Acquired absence of other specified parts of digestive tract; Z90.710 Acquired absence of both cervix and uterus; Z88.1 Allergy status to other antibiotic agents; Z91.012 Allergy to eggs; Z88.5 Allergy status to narcotic agent; Z88.6 Allergy status to analgesic agent; Z88.7 Allergy status to serum and vaccine; Z88.8 Allergy status to other drugs, medicaments and biological substances; Z79.82 Long term (current) use of aspirin; Z79.02 Long term (current) use of antithrombotics/antiplatelets; Z79.84 Long term (current) use of oral hypoglycemic drugs; Z83.3 Family history of diabetes mellitus; Z83.79 Family history of other diseases of the digestive system; Z91.018 Allergy to other foods; Z88.2 Allergy status to sulfonamides

== ENCOUNTER → 2019-05-14 | Outpatient (CLI) | payer MEDICARE, BC ==
[~2019-05-14] MED LIST changes: +AMOXICILLIN 25250 MG PO; +CEPHALEXIN500 M1 PO; +NORVASC2.5 MG PO
== END ==
LOC: MC.RAD 13:48
DX: Z12.31 Encounter for screening mammogram for malignant neoplasm of breast (principal)

== ENCOUNTER 2019-06-17 15:15 | Outpatient (RCR) | payer MEDICARE, BC | END 2019-07-14 08:12 | disposition home or self-care (01) | LOC: WSPT 15:15 | DX: M25.551 Pain in right hip (principal); Z96.641 Presence of right artificial hip joint ==

== ENCOUNTER 2019-10-26 05:04 | Emergency (ER) | payer MEDICARE, BC ==
[~2019-10-26] VITALS: Ht 154.9 cm; Wt 54.5 kg
[2019-10-26 05:05] VITALS: TEMP 98.2
[2019-10-26 05:58] LABS: PROTHROMBIN TIME 11.3 SECONDS (9.7-12.8)
[2019-10-26 05:59] LABS: BASO % 0.7 % (0.0-2.0); EOS # 0.3 (0.0-0.7); EOS % 5.7 % (0-4.0); GRAN # 3.1 (1.4-6.5); GRAN % 51.9 % (42.2-75.2); HEMATOCRIT 37.5 % (37.0-47.0); HEMOGLOBIN 12.9 g/dl (12.5-16.0); LYMPH # 1.8 (1.2-3.4); MEAN CELL VOLUME 98 fl (80.0-100.0); MEAN CORPUSCULAR HEMOGLOBIN 34 pg (27.0-31.0); MEAN CORPUSCULAR HGB CONC 34 g/dl (33.0-37.0); MEAN PLATELET VOLUME 10.1 fl (7.4-10.4); MONO # 0.6 (0.1-0.6); MONO % 10.4 % (1.7-9.3); PLATELET COUNT 184 K/mm3 (130-400); RED BLOOD COUNT 3.84 M/mm3 (4.10-5.30); REDCELL DISTRIBUTION WIDTH-CV 11.9 % (11.5-14.5)
[2019-10-26 06:01] LABS: BILIRUBIN,TOTAL 0.6 mg/dL (0.0-1.0); CALCIUM 9.4 mg/dL (8.4-10.2); CREATININE, serum 0.98 (0.52-1.25); POTASSIUM 4.2 mmol/L (3.4-5.0); TOTAL PROTEIN 7.2 gm/dL (6.4-8.2)
[2019-10-26 07:04] VITALS: BP 155/84; PULSE 80
== END 2019-10-26 07:05 | disposition home or self-care (01) ==
LOC: COL.ER 05:04
PROVIDERS: Emergency Medicine
DX: I10 Essential (primary) hypertension (principal); I25.10 Atherosclerotic heart disease of native coronary artery without angina pectoris; Z79.02 Long term (current) use of antithrombotics/antiplatelets; Z79.82 Long term (current) use of aspirin; Z88.2 Allergy status to sulfonamides; Z88.6 Allergy status to analgesic agent; Z88.1 Allergy status to other antibiotic agents; Z90.710 Acquired absence of both cervix and uterus; Z95.5 Presence of coronary angioplasty implant and graft

== ENCOUNTER → 2019-12-07 | Outpatient (CLI) | payer MEDICARE, BC | LOC: COL.RAD | DX: N39.41 Urge incontinence (principal); R31.9 Hematuria, unspecified ==

== ENCOUNTER 2019-12-19 13:55 | Inpatient (IN) | payer MEDICARE, BC ==
[~2019-12-19] VITALS: Ht 157.5 cm; Wt 58.8 kg
[2019-12-19 15:01] LABS: BASO % 0.3 % (0.0-2.0); EOS % 0.1 % (0-4.0); GRAN # 6.8 (1.4-6.5); GRAN % 86.4 % (42.2-75.2); HEMATOCRIT 41.5 % (37.0-47.0); HEMOGLOBIN 14.4 g/dl (12.5-16.0); LYMPH # 0.7 (1.2-3.4); LYMPH % 9.3 % (20.0-51.0); MEAN CELL VOLUME 95 fl (80.0-100.0); MEAN CORPUSCULAR HEMOGLOBIN 33 pg (27.0-31.0); MEAN CORPUSCULAR HGB CONC 35 g/dl (33.0-37.0); MEAN PLATELET VOLUME 9.9 fl (7.4-10.4); MONO # 0.3 (0.1-0.6); MONO % 3.5 % (1.7-9.3); PLATELET COUNT 223 K/mm3 (130-400); RED BLOOD COUNT 4.35 M/mm3 (4.10-5.30); REDCELL DISTRIBUTION WIDTH-CV 11.6 % (11.5-14.5)
[2019-12-19 15:18] LABS: ALBUMIN 4.8 gm/dL (3.5-5.0); C-REACTIVE PROTEIN 1.3 mg/dL (0.0-0.9); CALCIUM 9.7 mg/dL (8.4-10.2); CREATININE, serum 0.88 (0.52-1.25); TOTAL PROTEIN 8.3 gm/dL (6.4-8.2)
[2019-12-19 16:51] LABS: COLLECTION METHOD CLEAN CATCH
[2019-12-19 17:05] LABS: MUCOUS Present /lpf; PH 6 (5-8); URINE APPEARANCE Hazy; URINE BACTERIA Occasional /hpf; URINE BILIRUBIN Negative (NEGATIVE); URINE BLOOD Negative (NEGATIVE); URINE COLOR Yellow; URINE GLUCOSE Negative (NEGATIVE); URINE KETONE 1+ (NEGATIVE); URINE LEUKOCYTE ESTERASE 2+ (NEGATIVE); URINE NITRATE Negative (NEGATIVE); URINE PROTEIN(semi-quant) Negative (NEGATIVE); URINE RBC 0-2 /hpf; URINE UROBILINOGEN Negative (NEGATIVE)
[2019-12-19] MEDS ORDERED: ZOFRAN ODT4 MG PO (17:15)
[2019-12-19] MEDS ORDERED: CEFTIN500 MG PO (17:15)
[2019-12-19] MEDS ORDERED: TOPROL XL 50MG50 MG PO (18:44)
[2019-12-19] MEDS ORDERED: PLAVIX 75MG TAB75 MG PO (18:45)
[2019-12-19] MEDS ORDERED: TOPROL XL 25MG25 MG PO (18:45)
[2019-12-19] MEDS ORDERED: VITAMINC1000TA PO (18:46)
[2019-12-19] MEDS ORDERED: CRANBERRY250 MG PO (18:47)
[2019-12-19] MEDS ORDERED: UREX1 GM PO (18:47)
[2019-12-19] MEDS ORDERED: VITAMIN D31000 I1 PO (18:47)
[2019-12-19 18:58] LABS: MAGNESIUM 1.8 mg/dL (1.6-2.3); PHOSPHOROUS 3.2 mg/dL (2.5-4.5)
[2019-12-19 20:00] VITALS: BP 147/69; PULSE 73; TEMP 98.1
--- NOTE | 2019-12-19 20:00 | NUR ---
Patient to medical room 352 at this time. She complains of nausea and has vomited approx. 20 ml of dark brown liquid. No complaints of abdominal pain, no fever, no chills. Patient also states she is beginning to have a metallic taste in her mouth; DWAIN Cartagena notified. Patient is on RA with no increased work of breathing. No edema is present; HR is normal and regular, lungs are clear. Patient states she had a normal BM this morning. Assessment B, med rec, ID and COVID screen complete. Will continue to manage nausea with Zofran as needed.
[2019-12-19] MEDS ORDERED: PRINIVIL2.5 MG PO (20:11)
[2019-12-19 21:01] VITALS: BP 147/69; PULSE 65; TEMP 98.1
[2019-12-20] VITALS (8 sets, daily range): BP systolic 105–148; BP diastolic 53–81; PULSE 51–70; TEMP 97.9–98.4
--- NOTE | 2019-12-20 03:40 | NUR ---
Patient is resting in bed with no new complaints of nausea or recent vomiting. IV fluids infusing. Will continue to monitor.
[2019-12-20 07:28] LABS: BASO % 0.4 % (0.0-2.0); EOS # 0.1 (0.0-0.7); EOS % 0.8 % (0-4.0); GRAN # 5.3 (1.4-6.5); GRAN % 66.1 % (42.2-75.2); LYMPH # 1.7 (1.2-3.4); LYMPH % 21.8 % (20.0-51.0); MEAN CELL VOLUME 96 fl (80.0-100.0); MEAN CORPUSCULAR HGB CONC 35 g/dl (33.0-37.0); MEAN PLATELET VOLUME 10.3 fl (7.4-10.4); MONO # 0.8 (0.1-0.6); MONO % 9.9 % (1.7-9.3); PLATELET COUNT 188 K/mm3 (130-400); RED BLOOD COUNT 3.72 M/mm3 (4.10-5.30); REDCELL DISTRIBUTION WIDTH-CV 11.9 % (11.5-14.5)
[2019-12-20 07:42] LABS: ALBUMIN 3.7 gm/dL (3.5-5.0); BILIRUBIN,TOTAL 1.7 mg/dL (0.0-1.0); CREATININE, serum 0.84 (0.52-1.25); HEMATOCRIT 35.7 % (37.0-47.0); HEMOGLOBIN 12.3 g/dl (12.5-16.0); MEAN CORPUSCULAR HEMOGLOBIN 33 pg (27.0-31.0); POTASSIUM 3.8 mmol/L (3.4-5.0); TOTAL PROTEIN 6.5 gm/dL (6.4-8.2)
--- NOTE | 2019-12-20 07:54 | NUR ---
Assessment complete. Patient laying in bed, awake and alert at this time. Denies pain or discomfort, requesting pills so she can eat her breakfast. She was able to take her pills with a couple small bites of applesauce as it was easier for her to get them down. IV site is CD&I, IVF infusing at this time. Patient stated she would take it slow with breakfast. No other needs were expressed at this time. Call light is in reach.
--- NOTE | 2019-12-20 11:10 | NUR ---
SW met with the patient to discuss discharge plan. The patient lives alone in [place]. She states that her daughter, Vivien (ph#[phone]), lives fourteen miles away from her. She reports independence with ADLs and does not have any DME. The patient's PCP is Dr. Haydee Troncoso and she receives her medicaions at [facility]. She reports no difficulties obtaining her meds. The patient does not have advance directives and she was not interested in completing a DPOA-HC at this time. The patient states that she is not . She has three children: Vivien, Liz ([place]), and Anderson ([place]). The patient plans to return home upon discharge. SW discussed home health services. The patient reports that she is not interested in any home health at this time. SW to continue to follow as needed.
--- NOTE | 2019-12-20 11:22 | NUR ---
Patient reported that her nausea came back at this time. PRN zofran was provided to the patient at thit time. Ice chips provided as well. No other needs. Will continue to monitor. Call light is in reach.
[2019-12-20 15:55] LABS: HEMOGLOBIN 11.6 g/dl (12.5-16.0)
[2019-12-20 15:56] LABS: HEMATOCRIT 33.4 % (37.0-47.0)
--- NOTE | 2019-12-20 18:17 | NUR ---
Patient nauseated and vomiting at this time. PRN zofran provided for this. Patient has been nauseated most of the day. No pain or discomfort. IV site CD&I. No other needs at this time. Call light is in reach.
[2019-12-20 18:47] LABS: GASTROCCULT NEGATIVE; pH GASTRIC CONTENTS 4
--- NOTE | 2019-12-20 19:18 | NUR ---
Received report from Kristen. Seen patient awake, lying in bed. Denies pain. With IV on left AC infusing LR @ 125ml/hr. Still nauseous. Call light within reach.
--- NOTE | 2019-12-20 21:00 | NUR ---
About to give her night medicines and informed her I only have Vitamin D3 for tonight. She said she haven't taken her Metoprolol yet. Upon checking on MAY, it was not given at 1800H as she was having nausea/vomiting. This nurse informed her that we will check vital signs first before giving the metoprol. BP is 138/57 and HR is 56. Informed her about the parameters before giving the Metoprolol and it says to hold it if SBP is less than 120 or HR less than 60. Informed her I cannot give it since her heart rate is at 56 only. She verbalizes understanding thought she refused to take the Vitamin D3 saying she does't want to take it as it might trigger her with nausea and vomiting again.
--- NOTE | 2019-12-20 22:30 | NUR ---
Patient complains of pain on her IV site. Redness noted as well. Informed patient that we need to re-insert a new IV and she refused saying it hurts to have IV insertion again.Explained to patient that since she's complaining of pain already and there's some redness on the IV site, it means it is not good anymore and we don't want to have infection on the site. She prefers a doctor to insert an IV but informed her that I will call the greenhouse or nursery transplanter first to try the insertion. Patient agreed.
--- NOTE | 2019-12-20 23:20 | NUR ---
airport operations supervisor Yadira, tried and insert a new IV access on patient's right hand using G22. Patient got nauseous again. Zofran IV given.
--- NOTE | 2019-12-21 03:32 | NUR ---
Patient called, assisted her in the bathroom. Denies nausea or vomiting.
[2019-12-21 03:38] VITALS: BP 106/53; PULSE 52; TEMP 97.7
[2019-12-21 07:39] VITALS: BP 121/52; PULSE 58; TEMP 97.6
[2019-12-21 09:01] LABS: BASO % 0.4 % (0.0-2.0); EOS # 0.1 (0.0-0.7); EOS % 1.3 % (0-4.0); GRAN # 3.1 (1.4-6.5); GRAN % 58.6 % (42.2-75.2); HEMOGLOBIN 11.6 g/dl (12.5-16.0); LYMPH # 1.5 (1.2-3.4); MEAN CELL VOLUME 95 fl (80.0-100.0); MEAN CORPUSCULAR HEMOGLOBIN 33 pg (27.0-31.0); MEAN CORPUSCULAR HGB CONC 35 g/dl (33.0-37.0); MEAN PLATELET VOLUME 10.2 fl (7.4-10.4); MONO # 0.5 (0.1-0.6); MONO % 10.3 % (1.7-9.3); PLATELET COUNT 181 K/mm3 (130-400); REDCELL DISTRIBUTION WIDTH-CV 11.7 % (11.5-14.5)
[2019-12-21 09:10] LABS: HEMATOCRIT 33.4 % (37.0-47.0)
[2019-12-21 09:17] LABS: CALCIUM 8.7 mg/dL (8.4-10.2); CREATININE, serum 0.88 (0.52-1.25); MAGNESIUM 1.5 mg/dL (1.6-2.3); POTASSIUM 3.5 mmol/L (3.4-5.0)
--- NOTE | 2019-12-21 09:47 | NUR ---
Assessment complete. Patient resting in bed quietly but awake on entry. States her nausea is okay right now, she was able to take 2 of her morning meds, refused the vitamin. States she is comfortable and denies pain. Fluids continue to run at this time. No other needs were expressed at this time. Call light is in reach.
[2019-12-21 11:28] VITALS: BP 146/57; PULSE 58; TEMP 97.9
[2019-12-21 16:02] VITALS: BP 137/60; PULSE 79; TEMP 98.7
--- NOTE | 2019-12-21 16:35 | NUR ---
Patient has had an uneventful shift. PRN compazine was provided to the patient as she was begining to feel nauseous earlier in the shift, this helped her nausea. She had a small amount of dry heaving but has not had emisis today. SHe has napped on and off through the day. Denies pain or discomfort. No other needs at this time. Call light is in reach.
[2019-12-21 20:05] VITALS: BP 150/68; PULSE 75; TEMP 98.6
[2019-12-22] VITALS (7 sets, daily range): BP systolic 115–176; BP diastolic 64–89; PULSE 57–83; TEMP 97.4–98.7
--- NOTE | 2019-12-22 01:12 | NUR ---
Pt assessment completed and charted, alert, oriented, roomair. Meds provided as per MAY, refused vitamin. Pt is not having any nausea since this evening. Helped to settled on bed, call light on reach. Bed alarm is on, no further needs at this time.
--- NOTE | 2019-12-22 06:31 | NUR ---
Pt had an uneventful night, slept through out. Meds provided as per MAY. No further needs at this time.
[2019-12-22 07:49] LABS: BASO % 0.6 % (0.0-2.0); EOS # 0.1 (0.0-0.7); EOS % 2.4 % (0-4.0); GRAN # 3.1 (1.4-6.5); GRAN % 57.1 % (42.2-75.2); HEMOGLOBIN 11.7 g/dl (12.5-16.0); LYMPH # 1.5 (1.2-3.4); LYMPH % 28.3 % (20.0-51.0); MEAN CELL VOLUME 95 fl (80.0-100.0); MEAN CORPUSCULAR HEMOGLOBIN 33 pg (27.0-31.0); MEAN CORPUSCULAR HGB CONC 35 g/dl (33.0-37.0); MEAN PLATELET VOLUME 10.2 fl (7.4-10.4); MONO # 0.6 (0.1-0.6); PLATELET COUNT 183 K/mm3 (130-400); RED BLOOD COUNT 3.56 M/mm3 (4.10-5.30); REDCELL DISTRIBUTION WIDTH-CV 11.7 % (11.5-14.5)
[2019-12-22 07:51] LABS: HEMATOCRIT 33.8 % (37.0-47.0)
[2019-12-22 08:07] LABS: CALCIUM 8.3 mg/dL (8.4-10.2); CREATININE, serum 0.78 (0.52-1.25); PHOSPHOROUS 2.6 mg/dL (2.5-4.5); POTASSIUM 3.4 mmol/L (3.4-5.0)
--- NOTE | 2019-12-22 09:31 | NUR ---
Assessment completed, alert/oriented, vital signs stable, denies pain this morning, reports "feeling better this morning", still having some mild nausea but denies vomitting, abdomen is soft and non-tender, she is tolerting CL diet well but is taking it slow on intake, she would like to try and advance diet today, replacing KCL per protocol, a.m meds given, she denies other needs at this time
--- NOTE | 2019-12-22 11:42 | NUR ---
First visit from the building maintenance custodian. No needs right now.
--- NOTE | 2019-12-22 17:12 | NUR ---
Territory Account Executive met with patient who advised she wants to do outpatient physical therapy and aqua therapy at [facility] on [address]. SW will follow up with appointment and continue to follow.
--- NOTE | 2019-12-22 20:00 | NUR ---
Assessment complete at this time. Patient complains of mild nausea and request Zofran, which is administered. No complaints of pain, no edema. Patient expresses some anxiety about her heart rate and medications and education is provided. No new concerns, will continue to monitor.
--- NOTE | 2019-12-23 | NUR ---
Patient complains of not being able to sleep and that she can "feel her heart beating hard." SPEEDOMETER MECHANIC notified; EKG and benadryl to facilitate sleep ordered. Benadryl administered and EKG results with NSR. Patient denies chest pain. Will continue to monitor.
[2019-12-23 03:26] VITALS: BP 118/78; PULSE 78; TEMP 98.1
[2019-12-23 07:48] LABS: BASO % 0.5 % (0.0-2.0); EOS # 0.2 (0.0-0.7); EOS % 3.5 % (0-4.0); GRAN # 3.6 (1.4-6.5); GRAN % 59.9 % (42.2-75.2); HEMOGLOBIN 11.9 g/dl (12.5-16.0); LYMPH # 1.5 (1.2-3.4); LYMPH % 24.9 % (20.0-51.0); MEAN CELL VOLUME 95 fl (80.0-100.0); MEAN CORPUSCULAR HEMOGLOBIN 33 pg (27.0-31.0); MEAN CORPUSCULAR HGB CONC 35 g/dl (33.0-37.0); MONO # 0.7 (0.1-0.6); MONO % 10.7 % (1.7-9.3); PLATELET COUNT 186 K/mm3 (130-400); RED BLOOD COUNT 3.58 M/mm3 (4.10-5.30); REDCELL DISTRIBUTION WIDTH-CV 11.7 % (11.5-14.5)
[2019-12-23 08:02] LABS: CALCIUM 8.8 mg/dL (8.4-10.2); CREATININE, serum 0.94 (0.52-1.25); POTASSIUM 3.6 mmol/L (3.4-5.0)
[2019-12-23] MEDS ORDERED: OMNICEF 300MG300 MG PO (08:13)
--- NOTE | 2019-12-23 08:39 | NUR ---
Assessment completed, alert/oriented, vital signs stable, reports her abdomnial discomfort is improved but still not back to normal, she is tolerating some PO intake without N/V, abd is soft and BS+, she has been up and ambulated halls with PT, she is sitting at bedside getting ready to eat some breakfast, denies other needs at this time
[2019-12-23 09:14] VITALS: BP 129/59; PULSE 79; TEMP 97.9
--- NOTE | 2019-12-23 09:48 | NUR ---
Electric Power Superintendent contacted [facility] on [address] and was advised that a referral and orders would need to be sent, then they would reach out to patient to schedule appointment. SW faxed referral and orders as patient is ready to discharge today. SW met with patient to provide update. SW read IM form aloud to patient who verbalized understanding and provided verbal consent as signature. SW placed form in chart and patient declined copy. No additional needs at this time.
[2019-12-23 12:43] VITALS: BP 137/65; PULSE 62; TEMP 97.6
[2019-12-23 16:55] VITALS: BP 154/62; PULSE 64; TEMP 98.4
--- NOTE | 2019-12-23 18:21 | NUR ---
Discharge instructions reviewed with the patient, instructed to follow up as scheduled, discussed medication changes and new scripts, IV and tele removed, patient leaving with daughter, ELIECER escorted her out the door
== END 2019-12-23 18:24 | disposition home or self-care (01) | DRG 690 ==
LOC: COL.ER 13:55 → MEDICAL 17:58
PROVIDERS: Emergency Medicine; Hospitalist; Nurse Practitioner Family; Physician Assistant; ADMIT Family Medicine
DX: N39.0 Urinary tract infection, site not specified (principal); E87.2 Acidosis; E87.1 Hypo-osmolality and hyponatremia; E83.42 Hypomagnesemia; D64.9 Anemia, unspecified; E87.6 Hypokalemia; I25.10 Atherosclerotic heart disease of native coronary artery without angina pectoris; Z90.710 Acquired absence of both cervix and uterus; Z90.49 Acquired absence of other specified parts of digestive tract; Z90.89 Acquired absence of other organs; Z95.818 Presence of other cardiac implants and grafts; Z79.82 Long term (current) use of aspirin
CPT/HCPCS: 99223-AI; 99231-AI; 99232-AI; 99239; J0696; J0780; J1650; J2060; J2405; J3475; J3480; J7030; J7120; Q9967

== ENCOUNTER 2020-01-09 14:53 | Observation (INO) | payer MEDICARE, BC ==
--- NOTE | 2020-01-08 22:00 | NUR ---
PT ADMITTED TO R OOM 308 WITH Dx OF UTI. PT'S BIGGEST COMPLAINT IS NAUSEA AND EMESIS. PT ADMIN. ZOFRAN. SEE 5 PAGE ASSESSMENT.
[~2020-01-09] VITALS: Ht 157.5 cm; Wt 56.8 kg
[~2020-01-09 14:53] MED LIST changes: +CRANBERRY250 MG PO; +PRINIVIL2.5 MG PO; +UREX1 GM PO; +VITAMIN D31000 I1 PO; +VITAMINC1000TA PO
[2020-01-09 15:41] LABS: BASO % 0.2 % (0.0-2.0); EOS % 0.2 % (0-4.0); GRAN # 6.9 (1.4-6.5); GRAN % 81.6 % (42.2-75.2); HEMATOCRIT 40.8 % (37.0-47.0); HEMOGLOBIN 14.2 g/dl (12.5-16.0); LYMPH % 12.2 % (20.0-51.0); MEAN CELL VOLUME 96 fl (80.0-100.0); MEAN CORPUSCULAR HEMOGLOBIN 33 pg (27.0-31.0); MEAN CORPUSCULAR HGB CONC 35 g/dl (33.0-37.0); MEAN PLATELET VOLUME 9.4 fl (7.4-10.4); MONO # 0.5 (0.1-0.6); MONO % 5.3 % (1.7-9.3); PLATELET COUNT 251 K/mm3 (130-400); RED BLOOD COUNT 4.27 M/mm3 (4.10-5.30); REDCELL DISTRIBUTION WIDTH-CV 11.9 % (11.5-14.5)
[2020-01-09 16:07] LABS: ALANINE AMINOTRANSFERASE 17 U/L (4-34); ALBUMIN 4.5 gm/dL (3.5-5.0); ALKALINE PHOSPHATASE 125 U/L (50-136); ANION GAP 11 mmol/L (7-16); AST,SGOT 60 U/L (15-37); BILIRUBIN,TOTAL 1.5 mg/dL (0.0-1.0); BLOOD UREA NITROGEN 17 mg/dL (7-17); CALCIUM 9.6 mg/dL (8.4-10.2); CARBON DIOXIDE 21 mmol/L (22-30); CHLORIDE 99 mmol/L (98-107); CREATININE, serum 1.02 (0.52-1.25); GLUCOSE 167 mg/dL (74-106); LIPASE 25 U/L (23-300); POTASSIUM 3.9 mmol/L (3.4-5.0); SODIUM 131 mmol/L (137-145)
[2020-01-09 16:11] LABS: C-REACTIVE PROTEIN < 0.5 mg/dL (0.0-0.9)
[2020-01-09 17:04] LABS: COLLECTION METHOD CLEAN CATCH
[2020-01-09 17:09] LABS: MUCOUS Present /lpf; PH 6 (5-8); URINE APPEARANCE Clear; URINE BACTERIA None Seen /hpf; URINE BILIRUBIN Negative (NEGATIVE); URINE BLOOD Negative (NEGATIVE); URINE COLOR Yellow; URINE GLUCOSE Negative (NEGATIVE); URINE KETONE Trace (NEGATIVE); URINE LEUKOCYTE ESTERASE Negative (NEGATIVE); URINE NITRATE Negative (NEGATIVE); URINE PROTEIN(semi-quant) 1+ (NEGATIVE); URINE RBC 0-2 /hpf
[2020-01-09 19:54] VITALS: BP 129/51; PULSE 67; TEMP 97.8
[2020-01-09 23:30] VITALS: BP 129/58; PULSE 81; TEMP 97.9
--- NOTE | 2020-01-10 00:55 | NUR ---
PT HAS HAD SEVERAL SMALL EMESIS. MOSTLY CLEAR BUT WITH WHAT APPEARS TO BE SOME BILE.
[2020-01-10 03:16] VITALS: BP 142/56; PULSE 59; TEMP 97.9
[2020-01-10 07:06] LABS: ALBUMIN 3.9 gm/dL (3.5-5.0); BILIRUBIN,TOTAL 2.1 mg/dL (0.0-1.0); CREATININE, serum 0.99 (0.52-1.25); POTASSIUM 3.9 mmol/L (3.4-5.0); TOTAL PROTEIN 6.8 gm/dL (6.4-8.2)
[2020-01-10 07:19] VITALS: BP 165/68; PULSE 65; TEMP 98
--- NOTE | 2020-01-10 08:15 | NUR ---
Patient laying in bed watching TV. A&Ox3. VSS BP hypertensive. IV CDI, fluids infusing. Denies pain or discomfort. No reported nausea, vommiting since waking up in the morning. No further needs expressed from the patient. Call light within reach
[2020-01-10 09:47] LABS: BASO % 0.4 % (0.0-2.0); EOS # 0.1 (0.0-0.7); EOS % 1.7 % (0-4.0); GRAN # 5.1 (1.4-6.5); GRAN % 67.2 % (42.2-75.2); HEMATOCRIT 37.3 % (37.0-47.0); HEMOGLOBIN 12.7 g/dl (12.5-16.0); LYMPH # 1.7 (1.2-3.4); LYMPH % 21.9 % (20.0-51.0); MEAN CELL VOLUME 98 fl (80.0-100.0); MEAN CORPUSCULAR HEMOGLOBIN 33 pg (27.0-31.0); MEAN CORPUSCULAR HGB CONC 34 g/dl (33.0-37.0); MEAN PLATELET VOLUME 10.1 fl (7.4-10.4); MONO # 0.6 (0.1-0.6); MONO % 8.5 % (1.7-9.3); PLATELET COUNT 231 K/mm3 (130-400); RED BLOOD COUNT 3.81 M/mm3 (4.10-5.30); REDCELL DISTRIBUTION WIDTH-CV 11.9 % (11.5-14.5)
[2020-01-10 12:43] VITALS: BP 162/69; PULSE 59; TEMP 98
--- NOTE | 2020-01-10 12:56 | NUR ---
Initial visit; Patient thanked Account Contact Associate for looking in on her and offering spiritual care, especially comfort and prayer.
--- NOTE | 2020-01-10 13:29 | NUR ---
Oven Loader met with patient to discuss discharge planning. Patient is a readmit and was admitted at [facility] from 12/19/19-12/23/19 after presenting to the ED for nausea and vomiting. Patient lives alone in [place] and sees Dr. Troncoso for primary care. Patient obtains medications from [facility] with no difficulties. Patient states she believes all the medications she was put on at discharge are contributing to how she is feeling now. Patient does not use any DME and reports independence with ADLS. Patient states that she is not interested in any Home Health services and that she wants to continue with outpatient Physical Therapy at [facility]. Patient states she is scheduled to start aqua therapy next week and is scheduled twice a week for the remainder of the month. Patient does not have Advance Directives and is not interested in setting up DPOA-HC at this time. Patient is not and has three children: Vivien (ph#[phone]), Liz, and Anderson. Patient advised that Vivien lives about [place] miles outside of [facility], Liz lives in [place], and Anderson lives in [place]. Patient states she plans to return home at discharge. PT/OT ordered and patient walked 200 ft with PT. ALVARADO contacted DWIGHT Quiroga-CM at [facility] [place] and confirmed that patient saw Dr. Troncoso on 12/31/19 for a hospital follow up. ALVARADO updated Kimber on discharge plan and will continue to follow.
[2020-01-10 16:28] VITALS: BP 154/65; PULSE 59; TEMP 98
--- NOTE | 2020-01-10 17:55 | NUR ---
Patient had an uneventful day. Had one episode of nausea and scant amount of clear emesis. Nausea medication given when requested. Patient A&Ox4. VSS. No reported SOB. BP hypertensive. IV CDI, fluids infusing. Patient advanced to a general diet and tolerating well. Patient did report that she did have a small BM. No further needs expressed from the patient. Call light within reach
--- NOTE | 2020-01-10 19:41 | NUR ---
Received report from DWIGHT Casanova. Pleasant and cooperative with care. Pt up to BR, had BM. A/O x4. Denies any pain or discomfort at this time. Tele monitor in place, leads checked. IVF infusing to RAC, intact, dressing CDI. Needs met at this time. Call light within reach.
[2020-01-10 19:49] VITALS: BP 142/63; PULSE 51; TEMP 98.1
--- NOTE | 2020-01-10 23:07 | NUR ---
Pt awake at this time requesting snacks. Snacks provided as requested. No other needs or concerns. Call light within reach.
[2020-01-10 23:44] VITALS: BP 125/50; PULSE 71; TEMP 97.9
[2020-01-11 03:35] VITALS: BP 134/90; PULSE 78; TEMP 97.8
[2020-01-11 03:42] VITALS: BP 119/53; PULSE 63; TEMP 98.2
--- NOTE | 2020-01-11 06:34 | NUR ---
Pt slept through the night w/o any complaints. Meds administered. Call light within reach.
--- NOTE | 2020-01-11 06:42 | NUR ---
Report given to DWIGHT Kothari.
[2020-01-11 07:50] VITALS: BP 134/61; PULSE 70; TEMP 98
--- NOTE | 2020-01-11 08:30 | NUR ---
PATIENT IS AWAKE AND ALERT IN ROOM. SHE IS SITTING ON THE SIDE OF THE BED EATING BREAKFAST. SHE SAID HER STOMACH IS NOT HANDLING IT WELL BUT SHE WAS GIVEN EGGS WHICH TYPICALLY DON'T AGREE WITH HER EVEN WHEN SHE ISN'T HAVING STOMACH ISSUES. SHE PREFERS NOT TO EAT SAUSAGE FOR THE SAME REASON. I DID OFFER TO PROVIDE HER WITH COLD CEREAL AND SHE SAID SHE WOULD LET ME KNOW IF SHE WANTED SOME LATER. I DID OFFER PRN ZOFRAN AND SHE STATED IT WOULD BE A GOOD IDEA. SHE DID LAY BACK DOWN WITH HEAD OF BED ELEVATED. SHE DENIES HAVING PAIN JUST SLIGHT UPSET STOMACH. CALL LIGHT IS WITHIN REACH.
[2020-01-11] MEDS ORDERED: PROTONIX20 MG PO (09:20)
--- NOTE | 2020-01-11 15:22 | NUR ---
PATIENT DISCHARGED HOME AT 1150. DRESSED INDEPENDENTLY. DECLINED TO REVIEW DISCHARGE INSTRUCTIONS SHE HAS HAD THESE DIAGNOSIS BEFORE. DID DISCUSS NEW MEDICATIONS. PERSONAL BELONGINGS SENT WITH PATIENT. TRANSPORTED TO PRIVATE VEHICLE VIA WHEELCHAIR.
== END 2020-01-11 11:50 | disposition home or self-care (01) ==
LOC: COL.ER 14:53 → MEDICAL 17:29
PROVIDERS: Family Medicine; Physician Assistant; ADMIT Internal Medicine
DX: R11.2 Nausea with vomiting, unspecified (principal); E87.1 Hypo-osmolality and hyponatremia; E86.0 Dehydration; Z87.440 Personal history of urinary (tract) infections; R53.1 Weakness; E80.7 Disorder of bilirubin metabolism, unspecified; R73.9 Hyperglycemia, unspecified; I25.10 Atherosclerotic heart disease of native coronary artery without angina pectoris; I10 Essential (primary) hypertension; I47.1 Supraventricular tachycardia; I47.2 Ventricular tachycardia; Z95.818 Presence of other cardiac implants and grafts; Z88.2 Allergy status to sulfonamides; Z88.1 Allergy status to other antibiotic agents; Z88.5 Allergy status to narcotic agent; Z88.8 Allergy status to other drugs, medicaments and biological substances; Z90.49 Acquired absence of other specified parts of digestive tract; Z96.641 Presence of right artificial hip joint; Z79.899 Other long term (current) drug therapy; Z79.82 Long term (current) use of aspirin; Z80.0 Family history of malignant neoplasm of digestive organs; Z80.42 Family history of malignant neoplasm of prostate
CPT/HCPCS: G0378; J2405; J7030; J7120

== ENCOUNTER 2020-03-20 13:00 | Outpatient (RCR) | payer MEDICARE, BC ==
[~2020-03-20 13:00] MED LIST changes: +PROTONIX20 MG PO
== END 2020-04-03 | disposition home or self-care (01) ==
LOC: WSPT
DX: R53.1 Weakness (principal); R56.9 Unspecified convulsions

== ENCOUNTER 2020-06-02 14:30 | Outpatient (RCR) | payer MEDICARE, BC | END 2020-07-03 | disposition home or self-care (01) | LOC: WSPT | DX: R53.1 Weakness (principal) ==

== ENCOUNTER → 2020-06-06 | Outpatient (CLI) | payer MEDICARE, BC | LOC: MC.RAD 05-16 10:30 | DX: Z12.31 Encounter for screening mammogram for malignant neoplasm of breast (principal) ==

== ENCOUNTER → 2021-07-20 | Outpatient (CLI) | payer MEDICARE, BC | LOC: MC.RAD 06-07 09:00 | DX: Z12.31 Encounter for screening mammogram for malignant neoplasm of breast (principal); Z00.00 Encounter for general adult medical examination without abnormal findings ==

== ENCOUNTER 2021-08-07 12:48 | Emergency (ER) | payer MEDICARE, BC ==
[~2021-08-07] VITALS: Ht 157.5 cm; Wt 55.5 kg
[2021-08-07 12:59] VITALS: TEMP 96.8
[2021-08-07 15:16] VITALS: BP 184/98; PULSE 68
== END 2021-08-07 15:16 | disposition home or self-care (01) ==
LOC: COL.ER 12:48
DX: S01.511A Laceration without foreign body of lip, initial encounter (principal); S63.501A Unspecified sprain of right wrist, initial encounter; S80.01XA Contusion of right knee, initial encounter; S80.02XA Contusion of left knee, initial encounter; Z28.310 Unvaccinated for COVID-19; W01.0XXA Fall on same level from slipping, tripping and stumbling without subsequent striking against object, initial encounter; Y92.009 Unspecified place in unspecified non-institutional (private) residence as the place of occurrence of the external cause

== ENCOUNTER 2022-07-24 13:30 | Outpatient (RCR) | payer MEDICARE, BC | END 2022-07-28 | disposition home or self-care (01) | LOC: WSPT | DX: M80.059 Age-related osteoporosis with current pathological fracture, unspecified femur (principal) ==

== ENCOUNTER 2023-09-22 10:30 | Outpatient (RCR) | payer MEDICARE, BC ==
[~2023-09-22 10:30] MED LIST changes: -CRANBERRY250 MG PO; +CRANBERRY500 M3 PO; +DIVIGEL1 MG/Packe TD; +MULTI VITAMINS1 TAB PO; +NATURAL MAGNES200 MG PO; +PREMARIN 0.60.625 M1 PO; +PROBIOTIC BLEN1 EACH PO; +URITRAX47 GM PO; +VITAMIN B11000 MCG/M IM; -VITAMIN D31000 I1 PO; +VITAMIND3 5000 PO
== END 2023-09-28 ==
LOC: WSPT
DX: M54.50 Low back pain, unspecified (principal)